=== PATIENT | female | born 1955 | race Two or more races ===

== ENCOUNTER 2017-02-26 22:09 | Emergency (ER) | payer MEDICAID ==
[~2017-02-26] VITALS: Ht 157.5 cm; Wt 84.5 kg
[2017-02-26 22:19] VITALS: Ht 157.5 cm; Wt 84.5 kg
--- NOTE | 2017-02-26 22:49 | ERA ---
ER Documentation Chief Complaint Date/Time DATE: 02/26/17 TIME: 22:48 Chief Complaint Abdominal pain HPI The patient is a 62-year-old female, presenting to the ER because of left-sided abdominal pain intermittently for 1 month, worse tonight. She has similar symptoms previously, denies fever, chills, neck pain, chest pain, dyspnea. She vomited 3 times a day, mostly mucus, complains of diarrhea for the last 2 days. She denies hematochezia, hematemesis. She denied dysuria. She does not smoke nor drink. She denies any trauma Past medical history: Hypertension, history of renal carcinoma Past surgical history: Right nephrectomy, ROS All systems reviewed and are negative except as per history of present illness. Medications Home Meds Active Scripts Acetaminophen* (Tylenol*) 325 Mg Tablet, 650 MG PO Q6H Y for PAIN AND OR ELEVATED TEMP, #20 TAB Prov:ANDREI ARROYO MD 02/27/17 Sulfamethoxazole/Trimethoprim* (Bactrim Ds* Tablet) 1 Each Tablet, 1 TAB PO BID , #14 TAB Prov:ANDREI ARROYO MD 02/27/17 Allergies Allergies: Coded Allergies: No Known Allergy (Unverified , 02/26/17) Physical Exam Vitals Vital Signs Date Time Temp Pulse Resp B/P Pulse Ox O2 Delivery O2 Flow Rate FiO2 02/27/17 01:39 71 17 143/87 98 Room Air 02/26/17 23:29 76 17 158/95 98 Room Air 02/26/17 22:19 98.4 88 18 181/107 96 Physical Exam Const: No acute distress. Head: Atraumatic. Eyes: Normal Conjunctiva. ENT: Normal External Ears, Nose and Mouth. Neck: Full range of motion. No meningismus. Resp: Clear to auscultation bilaterally. Cardio: Regular rate and rhythm. Abd: Soft, non distended, normal bowel sounds, minimal and vague left- sided abdominal tenderness, no right lower quadrant, right upper quadrant, rigidity, rebound, CVA tenderness Skin: No petechiae or rashes. Back: No midline or flank tenderness. Ext: No cyanosis, or edema. Neur: Awake and alert. No focal deficit Psych: Normal Mood and Affect. Result Diagram: 02/26/17 2300 02/26/17 2300 Results 24 hrs Laboratory Tests Test 02/26/17 23:00 02/26/17 23:03 White Blood Count 11.810^3/ul Red Blood Count 4.7110^6/ul Hemoglobin 13.5g/dl Hematocrit 40.3% Mean Corpuscular Volume 85.6fl Mean Corpuscular Hemoglobin 28.7pg Mean Corpuscular Hemoglobin Concent 33.5g/dl Red Cell Distribution Width 14.5% Platelet Count 57349^3/UL Mean Platelet Volume 10.4fl Neutrophils % 73.2% Lymphocytes % 14.4% Monocytes % 9.3% Eosinophils % 1.9% Basophils % 0.4% Nucleated Red Blood Cells % 0.0/100WBC Neutrophils # 8.610^3/ul Lymphocytes # 1.710^3/ul Monocytes # 1.110^3/ul Eosinophils # 0.210^3/ul Basophils # 0.110^3/ul Nucleated Red Blood Cells # 0.010^3/ul Prothrombin Time 11.7Sec Prothrombin Time Ratio 0.9 INR International Normalized Ratio 0.86 Activated Partial Thromboplast Time 29.2Sec Sodium Level 141mmol/L Potassium Level 4.0mmol/L Chloride Level 107mmol/L Carbon Dioxide Level 27mmol/L Anion Gap 11 Blood Urea Nitrogen 31mg/dl Creatinine 1.54mg/dl Glucose Level 94mg/dl Calcium Level 9.5mg/dl Total Bilirubin 0.1mg/dl Direct Bilirubin 0.00mg/dl Indirect Bilirubin 0.1mg/dl Aspartate Amino Transf (AST/SGOT) 42IU/L Alanine Aminotransferase (ALT/SGPT) 55IU/L Alkaline Phosphatase 92IU/L Total Protein 7.5g/dl Albumin 4.5g/dl Globulin 3.00g/dl Albumin/Globulin Ratio 1.50 Lipase 179U/L Bedside Urine pH (LAB) 7.0 Bedside Urine Protein (LAB) 1+ Bedside Urine Glucose (UA) Negative Bedside Urine Ketones (LAB) Negative Bedside Urine Blood Trace-intact Bedside Urine Nitrite (LAB) Negative Bedside Urine Leukocyte Esterase (L 1+ Current Medications Medications (Trade) Dose Ordered Sig/Mark Route PRN Reason Start Time Stop Time Status Last Admin Dose Admin Morphine Sulfate (morphine) 2 mg ONCE STAT IV 02/26/17 23:01 02/26/17 23:03 DC 02/26/17 23:14 Ondansetron HCl (Zofran Inj) 4 mg ONCE STAT IV 02/26/17 23:01 02/26/17 23:03 DC 02/26/17 23:14 Trimethoprim/ Sulfamethoxazole (Bactrim (Ds)) 1 tab ONCE ONCE PO 02/27/17 03:30 02/27/17 03:31 Procedures/MDM [place] [id number] Radiology Main Line: [phone] DIAGNOSTIC IMAGING REPORT Patient: ELVIN ALDANA : 1955 Age: 62 Sex: F MR #: [id number] DOS: 02/26/17 2301 Ordering MD: ANDREI ARROYO MD Location: E/R Room/Bed: PROCEDURE: CT Abdomen and pelvis without contrast. CLINICAL INDICATION: Abdominal pain. TECHNIQUE: CT scan of the abdomen and pelvis was performed on a multi- detector high-resolution CT scanner. Contiguous axial images were obtained from the lung bases to the ischial tuberosities without intravenous contrast. Coronal and sagittal reformatted images were also obtained. Images were reviewed on the PACS workstation. One or more of the following dose reduction techniques were used: - Automated exposure control. - Adjustment of the mA and/or kV according to patient size. - Use of iterative reconstruction technique. Exam CTD/vol = 21.29 mGy. Total exam DLP = 1227.05 mGy-cm. COMPARISON: None. FINDINGS: Evaluation of the lung bases demonstrates mild bibasilar atelectasis. There is a calcified granuloma within the right lower lobe. There is a trace pericardial effusion. Abdomen: The liver is normal in size. There is no focal mass or dilatation of the biliary tree. The gallbladder is not distended. Multiple gallstones are identified. The spleen, pancreas and bilateral adrenal glands are within normal limits. The patient is status post right nephrectomy. The left kidney is normal in size with multiple small cortical cysts and calcifications. There is no radiopaque renal or ureteral calculus identified. There is no hydronephrosis or hydroureter. There is no retroperitoneal adenopathy. The abdominal aorta is of normal caliber with mild scattered atherosclerotic calcifications. There is no abnormal bowel wall thickening or distension. There is no bowel obstruction or free air. A normal appendix is identified. There is no diverticulosis or diverticulitis. There is no ascites. Pelvis: The bladder is unremarkable. The uterus and adnexa are within normal limits. There is no significant pelvic adenopathy or free fluid. Evaluation of the osseous structures demonstrates no suspicious lytic or blastic lesion. There is a nondisplaced fracture of the right lateral sixth rib. There are degenerative changes of the spine. IMPRESSION: Nondisplaced fracture of the right lateral sixth rib. Mild bibasilar atelectasis. Trace pericardial effusion. Cholelithiasis. Status post right nephrectomy. Multiple small left renal cortical cysts and calcifications. .Severiano Arzate MD, MD Date Time Electronically viewed and signed by .Severiano Arzate MD, MD on 02/27/2017 01:02 .T/ CC: ANDREI ARROYO MD MEDICAL MAKING DECISION: The patient is a 62-year-old female, presenting with acute cystitis, cholecystolithiasis, renal insufficiency. Treated with morphine 2 mg IV for pain, Zofran formula IV for nausea, Bactrim DS for acute cystitis. I do not suspect any acute rib fracture or any acute intra-abdominal pathology The differential diagnoses considered include but are not limited to cholelithiasis, cholecystitis, cystitis, pancreatitis, hepatitis, gastritis, peptic ulcer disease, gastric ulcer, appendicitis, diverticulitis, cholangitis, choledocholithiasis, partial small bowel obstruction. Departure Diagnosis: Primary Impression: UTI (urinary tract infection) Additional Impressions: Cholelithiasis Renal insufficiency Condition: Good Comments She was discharged with Bactrim DS and Tylenol I discussed the findings with the patient. I advised the patient to follow-up with the primary physician in about 1-2 days, sooner if needed and return if any concern. ANDREI ARROYO MD Feb 26, 2017 22:49
[2017-02-26 23:00] LABS: URINE BLOOD (Dip) POC Trace-intact (NEGATIVE)
[2017-02-26] MEDS ORDERED: morphine 2 MG INJ IV STA (23:01)
[2017-02-26] MEDS ORDERED: ONDANSETRON 4 MG INJ IV STA (23:01)
[2017-02-26 23:20] LABS: ADD SCAN DIFF NO
[2017-02-26 23:22] LABS: BASOPHIL # 0.1 10^3/ul (0.0-0.1); BASOPHILS % 0.4 % (0.0-2.0); EOSINOPHILS # 0.2 10^3/ul (0.0-0.5); EOSINOPHILS % 1.9 % (0.0-7.0); HEMATOCRIT 40.3 % (37.0-47.0); HEMOGLOBIN 13.5 g/dl (12.0-16.0); LYMPHOCYTES # 1.7 10^3/ul (0.8-2.9); LYMPHOCYTES % 14.4 % (15.0-51.0); MEAN CORPUSCULAR HEMOGLOBIN 28.7 pg (29.0-33.0); MEAN CORPUSCULAR HGB CONC 33.5 g/dl (32.0-37.0); MEAN CORPUSCULAR VOLUME 85.6 fl (82.0-101.0); MEAN PLATELET VOLUME 10.4 fl (7.4-10.4); MONOCYTE # 1.1 10^3/ul (0.3-0.9); MONOCYTES % 9.3 % (0.0-11.0); NEUTROPHIL # 8.6 10^3/ul (1.6-7.5); NEUTROPHILS % 73.2 % (39.0-77.0); PLATELET COUNT 338 10^3/UL (140-415); RED BLOOD COUNT 4.71 10^6/ul (4.20-5.40); RED CELL DISTRIBUTION WIDTH 14.5 % (11.5-14.5); WHITE BLOOD COUNT 11.8 10^3/ul (4.8-10.8)
[2017-02-26 23:37] LABS: INR 0.86; PROTIME 11.7 Sec (12.2-14.2); PT RATIO 0.9
[2017-02-26 23:38] LABS: PARTIAL THROMBOPLASTIN TIME 29.2 Sec (25.0-35.0)
[2017-02-26 23:44] LABS: ALBUMIN 4.5 g/dl (3.3-4.9); ALBUMIN/GLOBULIN RATIO 1.5; BILIRUBIN,INDIRECT 0.1 mg/dl (0-1.1); BILIRUBIN,TOTAL 0.1 mg/dl (0.2-1.3); CALCIUM 9.5 mg/dl (8.4-10.2); CREATININE 1.54 mg/dl (0.44-1.00); TOTAL PROTEIN 7.5 g/dl (6.1-8.1)
--- NOTE | 2017-02-27 01:02 | RADRPT ---
PROCEDURE: CT Abdomen and pelvis without contrast. CLINICAL INDICATION: Abdominal pain. TECHNIQUE: CT scan of the abdomen and pelvis was performed on a multi-detector high-resolution CT scanner. Contiguous axial images were obtained from the lung bases to the ischial tuberosities wit hout intravenous contrast. Coronal and sagittal reformatted images were also obtained. Images were reviewed on the PACS workstation. One or more of the following dose reduction techniques were used: - Automated exposure control. - Adjustment of the mA and/or kV according to patient size. - Use of iterative reconstruction technique. Exam CTD/vol = 21.29 mGy. Total exam DLP = 1227.05 mGy-cm. COMPARISON: None. FINDINGS: Evaluation of the lung bases demonstrates mild bibasilar atelectasis. There is a calcified granuloma within the right lower lobe. There is a trace pericardial effusion. Abdomen: The liver is normal in size. There is no focal mass or dilatation of the biliary tree. T he gallbladder is not distended. Multiple gallstones are identified. The spleen, pancreas and bila teral adrenal glands are within normal limits. The patient is status post right nephrectomy. The l eft kidney is normal in size with multiple small cortical cysts and calcifications. There is no rad iopaque renal or ureteral calculus identified. There is no hydronephrosis or hydroureter. There is no retroperitoneal adenopathy. The abdominal aorta is of normal caliber with mild scattered athero sclerotic calcifications. There is no abnormal bowel wall thickening or distension. There is no bowel obstruction or free air . A normal appendix is identified. There is no diverticulosis or diverticulitis. There is no asci gela. Pelvis: The bladder is unremarkable. The uterus and adnexa are within normal limits. There is no significant pelvic adenopathy or free fluid. Evaluation of the osseous structures demonstrates no suspicious lytic or blastic lesion. There is a nondisplaced fracture of the right lateral sixth rib. There are degenerative changes of the spine. IMPRESSION: Nondisplaced fracture of the right lateral sixth rib. Mild bibasilar atelectasis. Trace pericardial effusion. Cholelithiasis. Status post right nephrectomy. Multiple small left renal cortical cysts and calcifications. .Severiano Arzate MD, MD Date Time Electronically viewed and signed by .Severiano Arzate MD, MD on 02/27/2017 01:02 .T/
[2017-02-27] MEDS ORDERED: SULF1TAB31 PO (03:13)
[2017-02-27] MEDS ORDERED: ACET325T33 PO (03:14)
[2017-02-27] MEDS ORDERED: TRIMETHOPRIM/SULFAMETHOX (DS) TAB PO ONE (03:30)
[2017-02-27 05:45] VITALS: BP 145/88; PULSE 81; RESP 17
[2017-02-27] MEDS ORDERED: ONDANSETRON (ODT) 4 MG TAB ODT STA (05:56)
[2017-02-27] MEDS ORDERED: HYDROCODONE/APAP (5/325) TAB PO ONE ×2 (06:00)
[2017-02-27] MEDS ORDERED: ONDANSETRON (ODT) 4 MG TAB ODT ONE (06:01)
== END 2017-02-27 06:21 | disposition home or self-care (01) ==
LOC: E/R 22:09
DX: N39.0 Urinary tract infection, site not specified (principal); R40.2252 Coma scale, best verbal response, oriented, at arrival to emergency department; K80.20 Calculus of gallbladder without cholecystitis without obstruction; N28.9 Disorder of kidney and ureter, unspecified; I10 Essential (primary) hypertension; R40.2142 Coma scale, eyes open, spontaneous, at arrival to emergency department; R40.2362 Coma scale, best motor response, obeys commands, at arrival to emergency department; Z85.528 Personal history of other malignant neoplasm of kidney
CPT/HCPCS: 36415; 74176; 80053; 81003; 83690; 85025; 85610; 85730; 96374; 96375; J2270; J2405; Z7502; Z7610

== ENCOUNTER 2018-01-01 11:03 | Emergency (ER) | END 2018-01-01 13:33 | disposition home or self-care (01) ==